=== PATIENT | female | born 1955 | race Caucasian/White ===

== ENCOUNTER 2017-09-21 08:11 | Day surgery (SDC) | payer OTHER ==
[~2017-09-21] VITALS: Ht 165.1 cm; Wt 94.3 kg
[~2017-09-21 08:11] MED LIST: LISHYD1012 PO; METF500 PO; Voltaren100 GM TOP; ZESTORETIC 20-1 EAC1 PO
[2017-09-21] MEDS ORDERED: ACET500 PO (12:53)
[2017-09-21] MEDS ORDERED: OXYC5 PO (12:54)
[2017-09-21] MEDS ORDERED: ASPI325EC PO (12:54)
[2017-09-22 05:21] LABS: BASOPHILS ABSOLUTE AUTO 0.02 K/mm3 (0.00-0.23); BASOPHILS PERCENT AUTO 0 % (0-2); EOSINOPHILS PERCENT AUTO 0 % (0-6); Hemoglobin 10.8 g/dL (11.5-16.0); IMMATURE GRAN ABSOLUTE AUTO 0.07 K/mm3 (0.00-0.10); IMMATURE GRAN PERCENT AUTO 1 % (0-1); LYMPHOCYTES ABSOLUTE AUTO 1.44 K/mm3 (0.84-5.20); LYMPHOCYTES PERCENT AUTO 10 % (21-46); MONOCYTES ABSOLUTE AUTO 1.03 K/mm3 (0.16-1.47); MONOCYTES PERCENT AUTO 7 % (4-13); Mean Corpuscular HGB 30.2 pg (26.0-34.0); Mean Corpuscular HGB Conc 32.7 g/dL (31.5-36.5); Mean Corpuscular Volume 92 fL (80-100); NEUTROPHILS ABSOLUTE AUTO 11.63 K/mm3 (1.96-9.15); NEUTROPHILS PERCENT AUTO 82 % (41-73); Platelet Count 373 K/mm3 (150-400); RDW Coefficient Variation 12.7 % (11.7-14.2); RDW Standard Deviation 43.4 fL (35.1-46.3); Red Blood Cell Count 3.58 M/mm3 (3.80-5.20); White Blood Cell Count 14.19 K/mm3 (4.00-11.30)
[2017-09-22 06:12] LABS: Anion Gap 11 mmol/L (6-16); Blood Urea Nitrogen 18 mg/dL (8-24); Bun/Creatinine Ratio 19.4 (12.0-20.0); CO2, Blood 22 mmol/L (21-32); Calcium, Blood 8.3 mg/dL (8.5-10.1); Chloride, Blood 103 mmol/L (98-108); Creatinine, Blood 0.93 mg/dL (0.40-1.00); Glomerular Filtration Rate >60 (60-); Glucose, Blood 107 mg/dL (70-99); Magnesium, Blood 1.7 mg/dL (1.6-2.4); Potassium, Blood 4.3 mmol/L (3.5-5.5); Sodium, Blood 136 mmol/L (136-145)
== END 2017-09-22 14:45 | disposition home or self-care (01) ==
LOC: SURS 08:11 → ORSCMMR 08:11 → SURS 08:11 → PRE IP 08:11 → SURS 09:27 → PRE IP 10:30 → EDSTATUS 10:30 → SURS 12:37 → ORSCMMR 09-22 14:45 → SURS 09-22 14:45
PROVIDERS: Orthopaedic Surgery
PROC: 0SRD0J9 Replacement of Left Knee Joint with Synthetic Substitute, Cemented, Open Approach (ICD-10-PCS; principal; 2017-09-21 10:30)
DX: M17.12 Unilateral primary osteoarthritis, left knee (principal); I10 Essential (primary) hypertension; E11.9 Type 2 diabetes mellitus without complications; E66.01 Morbid (severe) obesity due to excess calories; Z68.35 Body mass index [BMI] 35.0-35.9, adult
CPT/HCPCS: 36415; 73560-LT; 80048; 82947; 83735; 85025; 88300; 97110; 97116; 97161; 97530; C1713; C1776; G8978; G8979; J0171; J0690; J0735; J1100; J1815; J1885; J2250; J2405; J2765; J2795; J3010; J7120

== ENCOUNTER → 2017-12-23 | Outpatient (CLI) | payer OTHER ==
[~2017-12-23] MED LIST changes: +ACET500 PO; +ASPI325EC PO; +OXYC5 PO
== END ==
LOC: LAB EV 18:15 → LAB SHORT 18:15
DX: L72.3 Sebaceous cyst (principal)
CPT/HCPCS: 87070; 87075; 87077; 87205

== ENCOUNTER 2018-10-19 08:18 | Day surgery (SDC) | payer OTHER ==
[~2018-10-19] VITALS: Ht 165.1 cm; Wt 96.4 kg
[~2018-10-19 08:18] MED LIST changes: +Glucophage1000 MG PO; +ZESTORETIC 20-121 EA
== END 2018-10-19 10:49 | disposition home or self-care (01) ==
LOC: ORSCSDS 08:18
PROVIDERS: Internal Medicine Gastroenterology
PROC: 0DBK8ZX Excision of Ascending Colon, Via Natural or Artificial Opening Endoscopic, Diagnostic (ICD-10-PCS; principal; 2018-10-19 09:45)
PROC: 0DBN8ZX Excision of Sigmoid Colon, Via Natural or Artificial Opening Endoscopic, Diagnostic (ICD-10-PCS; principal; 2018-10-19 09:45)
PROC: 0DBH8ZX Excision of Cecum, Via Natural or Artificial Opening Endoscopic, Diagnostic (ICD-10-PCS; principal; 2018-10-19 09:45)
DX: Z12.11 Encounter for screening for malignant neoplasm of colon (principal); D12.0 Benign neoplasm of cecum; D12.2 Benign neoplasm of ascending colon; D12.5 Benign neoplasm of sigmoid colon; K57.30 Diverticulosis of large intestine without perforation or abscess without bleeding; E11.9 Type 2 diabetes mellitus without complications; I10 Essential (primary) hypertension; G47.33 Obstructive sleep apnea (adult) (pediatric); Z79.899 Other long term (current) drug therapy
CPT/HCPCS: 82947; 88305; J7120